=== PATIENT | female | born 1965 | race Caucasian/White ===

== ENCOUNTER → 2017-02-17 09:52 | Outpatient (REF) | payer MEDICAID, SELFPAY ==
[2017-02-17 14:26] LABS: Amphetamine/Metha Screen,Urine Negative ng/mL (<1000); Barbiturates Screen,Urine Negative ng/mL (<200); Benzodiazepines Screen,Urine Negative ng/mL (200); Cannabinoid Screen,Urine Positive ng/mL (<50); Cocaine Screen,Urine Negative ng/g (<300); Methadone Screen,Urine Negative ng/mL (<300); Opiate Screen,Urine Positive ng/mL (<300); Phencyclidine Screen,Urine Negative ng/mL (<25)
== END ==
LOC: LAB 09:52
PROVIDERS: Visit Provider Nurse Practitioner Family
DX: Z79.899 Other long term (current) drug therapy (principal)
CPT/HCPCS: 80305

== ENCOUNTER → 2017-03-20 09:53 | Outpatient (REF) | payer MEDICAID, SELFPAY ==
[2017-03-20 14:53] LABS: Amphetamine/Metha Screen,Urine Negative ng/mL (<1000); Barbiturates Screen,Urine Negative ng/mL (<200); Benzodiazepines Screen,Urine Negative ng/mL (200); Cannabinoid Screen,Urine Positive ng/mL (<50); Cocaine Screen,Urine Negative ng/g (<300); Methadone Screen,Urine Negative ng/mL (<300); Opiate Screen,Urine Positive ng/mL (<300); Phencyclidine Screen,Urine Negative ng/mL (<25)
== END ==
LOC: LAB 09:53
PROVIDERS: Visit Provider Nurse Practitioner Family
DX: M54.9 Dorsalgia, unspecified (principal); G89.29 Other chronic pain; Z79.899 Other long term (current) drug therapy
CPT/HCPCS: 80305

== ENCOUNTER → 2017-05-15 10:51 | Outpatient (REF) | payer MEDICAID, SELFPAY ==
[2017-05-15 19:08] LABS: Amphetamine/Metha Screen,Urine Negative ng/mL (<1000); Barbiturates Screen,Urine Negative ng/mL (<200); Benzodiazepines Screen,Urine Negative ng/mL (200); Cannabinoid Screen,Urine Positive ng/mL (<50); Cocaine Screen,Urine Negative ng/g (<300); Methadone Screen,Urine Negative ng/mL (<300); Opiate Screen,Urine Positive ng/mL (<300); Phencyclidine Screen,Urine Negative ng/mL (<25)
== END ==
LOC: LAB 10:51
PROVIDERS: Visit Provider Nurse Practitioner Family
DX: Z79.899 Other long term (current) drug therapy (principal)
CPT/HCPCS: 80305

== ENCOUNTER → 2017-07-10 13:11 | Outpatient (CLI) | payer MEDICAID, SELFPAY ==
[2017-07-10 17:35] LABS: Amphetamine/Metha Screen,Urine Negative ng/mL (<1000); Barbiturates Screen,Urine Negative ng/mL (<200); Benzodiazepines Screen,Urine Negative ng/mL (200); Cannabinoid Screen,Urine Positive ng/mL (<50); Cocaine Screen,Urine Negative ng/g (<300); Methadone Screen,Urine Negative ng/mL (<300); Opiate Screen,Urine Positive ng/mL (<300); Phencyclidine Screen,Urine Negative ng/mL (<25)
== END ==
PROVIDERS: Visit Provider Nurse Practitioner Family
DX: Z79.899 Other long term (current) drug therapy (principal)
CPT/HCPCS: 80305

== ENCOUNTER → 2017-08-04 09:47 | Outpatient (REF) | payer MEDICAID, SELFPAY ==
[2017-08-04 14:39] LABS: Amphetamine/Metha Screen,Urine Negative ng/mL (<1000); Barbiturates Screen,Urine Negative ng/mL (<200); Benzodiazepines Screen,Urine Negative ng/mL (200); Cannabinoid Screen,Urine Positive ng/mL (<50); Cocaine Screen,Urine Negative ng/g (<300); Methadone Screen,Urine Negative ng/mL (<300); Opiate Screen,Urine Positive ng/mL (<300); Phencyclidine Screen,Urine Negative ng/mL (<25)
== END ==
LOC: LAB 09:47
PROVIDERS: Visit Provider Nurse Practitioner Family
DX: M54.9 Dorsalgia, unspecified (principal); G89.29 Other chronic pain
CPT/HCPCS: 80305

== ENCOUNTER → 2017-09-08 09:22 | Outpatient (REF) | payer MEDICAID, SELFPAY ==
[2017-09-08 17:15] LABS: Amphetamine/Metha Screen,Urine Negative ng/mL (<1000); Barbiturates Screen,Urine Negative ng/mL (<200); Benzodiazepines Screen,Urine Negative ng/mL (<200); Cannabinoid Screen,Urine Positive ng/mL (<50); Cocaine Screen,Urine Negative ng/mL (<300); Methadone Screen,Urine Negative ng/mL (<300); Opiate Screen,Urine Positive ng/mL (<300); Phencyclidine Screen,Urine Negative ng/mL (<25)
[2017-09-09 14:57] LABS: Alanine Aminotransferase 47 U/L (12-78); Albumin Level 4.3 gm/dL (3.4-5.0); Albumin/Globulin Ratio 1.3 (1.1-1.8); Alkaline Phosphatase 105 U/L (46-116); Anion Gap 15.9 mEq/L (5-15); Aspartate Amino Transferase 18 U/L (15-37); Blood Urea Nitrogen 7 mg/dL (7-18); Calcium 9.6 mg/dL (8.5-10.1); Carbon Dioxide 25 mmol/L (21.0-32.0); Chloride 100 mmol/L (98-107); Chol/HDL Ratio 3.8 (1-3.5); Cholesterol 150 mg/dL (140-200); Creatinine,Serum 0.84 mg/dL (0.55-1.02); Estimated Glomerular Filt Rate 71 ml/min (>60); GFR (African American) 86 ML/MIN (>60); Globulin 3.4 gm/dl (1.3-3.2); Glucose 256 mg/dL (74-106); HDL Cholesterol 40 mg/dL (29-89); LDL Cholesterol 83 mg/dL (0-130); Potassium 3.9 mmoL/L (3.5-5.1); Sodium 137 mmol/L (136-145); T4 (Thyroxine) 12.4 ug/dl (4.7-13.3); Thyroid Stimulating Hormone 0.51 uIU/ml (0.358-3.740); Total Protein,Serum 7.7 gm/dL (6.4-8.2); Triglycerides 134 mg/dL (30-200); VLDL Cholesterol 27 mg/dL (0-40)
[2017-09-10 16:42] LABS: Microalbumin, Urine 9.3 ug/mL (Not Estab.); Vitamin D 25 Hydroxy 33.5 ng/mL (30.0-100.0)
== END ==
LOC: LAB 09:22
PROVIDERS: Visit Provider Nurse Practitioner Family
DX: E11.9 Type 2 diabetes mellitus without complications (principal); G62.9 Polyneuropathy, unspecified; Z13.0 Encounter for screening for diseases of the blood and blood-forming organs and certain disorders involving the immune mechanism; Z13.29 Encounter for screening for other suspected endocrine disorder; Z79.899 Other long term (current) drug therapy
CPT/HCPCS: 80053; 80061; 80305; 82043; 82652; 83036; 84436; 84443

== ENCOUNTER → 2017-11-06 09:39 | Outpatient (CLI) | payer MEDICAID, SELFPAY ==
[2017-11-06 14:03] LABS: Amphetamine/Metha Screen,Urine Negative ng/mL (<1000); Barbiturates Screen,Urine Negative ng/mL (<200); Benzodiazepines Screen,Urine Negative ng/mL (<200); Cannabinoid Screen,Urine Positive ng/mL (<50); Cocaine Screen,Urine Negative ng/mL (<300); Methadone Screen,Urine Negative ng/mL (<300); Opiate Screen,Urine Positive ng/mL (<300); Phencyclidine Screen,Urine Negative ng/mL (<25)
== END ==
PROVIDERS: Visit Provider Nurse Practitioner Family
DX: Z79.899 Other long term (current) drug therapy (principal)
CPT/HCPCS: 80305

== ENCOUNTER → 2017-12-04 13:45 | Outpatient (REF) | payer MEDICAID, SELFPAY ==
[2017-12-04 15:19] LABS: Amphetamine/Metha Screen,Urine Negative ng/mL (<1000); Barbiturates Screen,Urine Negative ng/mL (<200); Benzodiazepines Screen,Urine Negative ng/mL (<200); Cannabinoid Screen,Urine Positive ng/mL (<50); Cocaine Screen,Urine Negative ng/mL (<300); Methadone Screen,Urine Negative ng/mL (<300); Opiate Screen,Urine Positive ng/mL (<300); Phencyclidine Screen,Urine Negative ng/mL (<25)
== END ==
LOC: LAB 13:45
PROVIDERS: PCP Nurse Practitioner Family; Visit Provider Nurse Practitioner Family
DX: Z79.899 Other long term (current) drug therapy (principal)
CPT/HCPCS: 80305

== ENCOUNTER → 2018-04-08 13:26 | Outpatient (CLI) | payer MEDICAID, SELFPAY ==
[2018-04-08 15:49] LABS: Amphetamine/Metha Screen,Urine Negative ng/mL (<1000); Barbiturates Screen,Urine Negative ng/mL (<200); Benzodiazepines Screen,Urine Negative ng/mL (<200); Cannabinoid Screen,Urine Positive ng/mL (<50); Cocaine Screen,Urine Negative ng/mL (<300); Methadone Screen,Urine Negative ng/mL (<300); Opiate Screen,Urine Positive ng/mL (<300); Phencyclidine Screen,Urine Negative ng/mL (<25)
== END ==
PROVIDERS: Visit Provider Nurse Practitioner Family
DX: Z79.899 Other long term (current) drug therapy (principal)
CPT/HCPCS: 80305

== ENCOUNTER → 2018-08-11 09:15 | Outpatient (CLI) | payer MEDICARE, SELFPAY ==
[2018-08-12 09:40] LABS: Basophils # 0.1 K/mm3 (0-0.2); Basophils % 0.5 % (0.1-2.0); Eosinophils # 0.1 K/mm3 (0.0-0.4); Eosinophils % 0.5 % (0.1-12.0); Hemoglobin 15.3 g/dL (12.2-16.2); Lymphocytes # 2.9 K/mm3 (0.7-4.5); Lymphocytes % 30.3 % (10-50); Mean Corpuscular HGB Conc 30.7 g/dL (31.8-35.4); Mean Corpuscular Volume 97.7 fl (81-99); Mean Platelet Volume 10.1 fl (7.4-10.4); Monocytes # 0.4 K/mm3 (0.1-1.0); Monocytes % 4.5 % (1.7-9.3); Neutrophils # 6.2 K/mm3 (1.8-7.8); Neutrophils % 64.2 % (37.0-80.0); Platelet Count 283 K/mm3 (142-424); Red Blood Count 5.12 M/mm3 (4.20-5.40); Red Cell Distribution Width 13.5 % (11.5-17.5); White Blood Count 9.7 K/mm3 (4.8-10.8)
[2018-08-12 11:20] LABS: Hemoglobin A1C 8.9 % (0.0-7.0)
[2018-08-12 11:39] LABS: Alanine Aminotransferase 51 U/L (12-78); Albumin Level 4.1 gm/dL (3.4-5.0); Albumin/Globulin Ratio 1.4 (1.1-1.8); Alkaline Phosphatase 74 U/L (46-116); Anion Gap 17.8 mEq/L (5-15); Aspartate Amino Transferase 31 U/L (15-37); Bilirubin,Total 1.2 mg/dL (0.2-1.0); Blood Urea Nitrogen 12 mg/dL (7-18); Calcium 9.7 mg/dL (8.5-10.1); Carbon Dioxide 25 mmol/L (21.0-32.0); Chloride 97 mmol/L (98-107); Chol/HDL Ratio 3.9 (1-3.5); Cholesterol 151 mg/dL (140-200); Creatinine,Serum 0.68 mg/dL (0.55-1.02); Estimated Glomerular Filt Rate 91 ml/min (>60); GFR (African American) 110 ML/MIN (>60); Glucose 198 mg/dL (74-106); HDL Cholesterol 39 mg/dL (29-89); LDL Cholesterol 75 mg/dL (0-130); Potassium 3.8 mmoL/L (3.5-5.1); Sodium 136 mmol/L (136-145); T4 (Thyroxine) 10.4 ug/dl (4.7-13.3); Thyroid Stimulating Hormone 1.02 uIU/ml (0.358-3.740); Total Protein,Serum 7.1 gm/dL (6.4-8.2); Triglycerides 186 mg/dL (30-200); VLDL Cholesterol 37 mg/dL (0-40)
[2018-08-15 03:31] LABS: Microalbumin, Urine 6.8 ug/mL (Not Estab.); Vitamin D 25 Hydroxy 23.7 ng/mL (30.0-100.0)
== END ==
PROVIDERS: Visit Provider Nurse Practitioner Family
DX: E11.9 Type 2 diabetes mellitus without complications (principal); G62.9 Polyneuropathy, unspecified; Z79.84 Long term (current) use of oral hypoglycemic drugs
CPT/HCPCS: 80053; 80061; 82043; 82652; 83036; 84436; 84443; 85025

== ENCOUNTER → 2018-09-08 13:32 | Outpatient (CLI) | payer MEDICARE, SELFPAY ==
[2018-09-08 14:36] LABS: Amphetamine/Metha Screen,Urine Negative ng/mL (<1000); Barbiturates Screen,Urine Negative ng/mL (<200); Benzodiazepines Screen,Urine Negative ng/mL (<200); Cannabinoid Screen,Urine Positive ng/mL (<50); Cocaine Screen,Urine Negative ng/mL (<300); Methadone Screen,Urine Negative ng/mL (<300); Opiate Screen,Urine Positive ng/mL (<300); Phencyclidine Screen,Urine Negative ng/mL (<25)
== END ==
PROVIDERS: Visit Provider Nurse Practitioner Family
DX: Z79.899 Other long term (current) drug therapy (principal)
CPT/HCPCS: 80305

== ENCOUNTER → 2019-08-10 13:36 | Outpatient (CLI) | payer MEDICARE, SELFPAY ==
[2019-08-10 13:47] LABS: Basophils # 0.4 K/mm3 (0-0.2); Basophils % 4.1 % (0.1-2.0); Eosinophils # 0.1 K/mm3 (0.0-0.4); Eosinophils % 0.8 % (0.1-12.0); Hemoglobin 15.3 g/dL (12.2-16.2); Lymphocytes % 34.5 % (10-50); Mean Corpuscular Hemoglobin 31.5 pg (27.0-31.2); Mean Corpuscular Volume 98.4 fl (81-99); Monocytes # 0.4 K/mm3 (0.1-1.0); Monocytes % 4.3 % (1.7-9.3); Neutrophils # 5.2 K/mm3 (1.8-7.8); Neutrophils % 60.4 % (37.0-80.0); Platelet Count 293 K/mm3 (142-424); Red Blood Count 4.87 M/mm3 (4.20-5.40); Red Cell Distribution Width 17.7 % (11.5-17.5); White Blood Count 8.6 K/mm3 (4.8-10.8)
[2019-08-10 13:59] LABS: Chloride 99 mmol/L (98-107)
[2019-08-10 14:00] LABS: Potassium 3.6 mmoL/L (3.5-5.1); Sodium 136 mmol/L (136-145)
[2019-08-10 14:02] LABS: Alanine Aminotransferase 41 U/L (12-78); Albumin Level 4.5 g/dl (3.5-5.0); Alkaline Phosphatase 72 U/L (38-126); Aspartate Amino Transferase 41 U/L (14-36); Bilirubin,Total 0.9 mg/dl (0.2-1.3); Blood Urea Nitrogen 8 mg/dl (7-17); Estimated Glomerular Filt Rate 129 ml/min (>60); GFR (African American) 156 ML/MIN (>60)
[2019-08-10 14:03] LABS: Albumin/Globulin Ratio 1.7 (1.1-1.8); Anion Gap 11.6 mEq/L (5-15); Carbon Dioxide 29 mmol/L (22.0-30.0); Chol/HDL Ratio 3.4 (1-3.5); Cholesterol 167 mg/dl (140-200); Globulin 2.7 g/dL (1.3-3.2); Glucose 233 mg/dl (74-100); HDL Cholesterol 49 mg/dl (40-60); Total Protein,Serum 7.2 g/dl (6.3-8.2); Triglycerides 214 mg/dl (30-150); VLDL Cholesterol 43 mg/dL (0-40)
[2019-08-10 14:14] LABS: Direct LDL Cholesterol 100.13 mg/dL (100-129)
[2019-08-10 14:15] LABS: Creatinine,Urine Random 84 mg/dL (Not Estab.)
[2019-08-10 14:21] LABS: T4 (Thyroxine) 11.2 ug/dl (5.53-11.0)
[2019-08-10 14:28] LABS: Microalbumin/Creatinine Ratio 9.1
[2019-08-10 14:34] LABS: Thyroid Stimulating Hormone 0.78 uIU/mL (0.465-4.68)
[2019-08-10 15:24] LABS: Hemoglobin A1C 9.7 % (4.0-6.0)
[2019-08-16 16:28] LABS: 1,25 Dihydroxy Vitamin D 43 pg/mL (.); 1,25-Dihydroxy, Vitamin D-2 <10 pg/mL (.)
[2019-08-16 16:29] LABS: 1,25-Dihydroxy, Vitamin D-3 39 pg/mL (.)
== END ==
PROVIDERS: Visit Provider Nurse Practitioner Family
DX: E11.9 Type 2 diabetes mellitus without complications (principal); G47.00 Insomnia, unspecified; E55.9 Vitamin D deficiency, unspecified; Z79.84 Long term (current) use of oral hypoglycemic drugs
CPT/HCPCS: 80053; 80061; 82043; 82570; 82652; 83036; 84436; 84443; 85025

== ENCOUNTER → 2020-08-01 20:03 | Outpatient (CLI) | payer MEDICARE, SELFPAY ==
[2020-08-01 20:31] LABS: Basophils % 0.3 % (0.1-2.0); Eosinophils # 0.1 K/mm3 (0.0-0.4); Eosinophils % 0.9 % (0.1-12.0); Hematocrit 43.1 % (37.0-47.0); Lymphocytes # 3.4 K/mm3 (0.7-4.5); Lymphocytes % 32.5 % (10-50); Mean Corpuscular HGB Conc 34.8 g/dL (31.8-35.4); Mean Platelet Volume 9.4 fl (7.4-10.4); Monocytes # 0.5 K/mm3 (0.1-1.0); Neutrophils # 6.5 K/mm3 (1.8-7.8); Neutrophils % 61.2 % (37.0-80.0); Platelet Count 221 K/mm3 (142-424); Red Blood Count 4.68 M/mm3 (4.20-5.40); Red Cell Distribution Width 13.4 % (11.5-17.5); White Blood Count 10.6 K/mm3 (4.8-10.8)
[2020-08-01 20:40] LABS: Alanine Aminotransferase 37 U/L (12-78); Albumin Level 4.7 g/dl (3.5-5.0); Albumin/Globulin Ratio 1.9 (1.1-1.8); Anion Gap 16.7 mEq/L (5-15); Aspartate Amino Transferase 38 U/L (14-36); Blood Urea Nitrogen 8 mg/dl (7-17); Calcium 9.8 mg/dl (8.4-10.2); Carbon Dioxide 27 mmol/L (22.0-30.0); Chloride 98 mmol/L (98-107); Cholesterol 161 mg/dl (140-200); Estimated Glomerular Filt Rate 104 ml/min (>60); GFR (African American) 126 ML/MIN (>60); Globulin 2.5 g/dL (1.3-3.2); Glucose 165 mg/dl (74-100); HDL Cholesterol 36 mg/dl (40-60); Potassium 3.7 mmoL/L (3.5-5.1); Sodium 138 mmol/L (136-145); Total Protein,Serum 7.2 g/dl (6.3-8.2); Triglycerides 237 mg/dl (30-150); VLDL Cholesterol 47 mg/dL (0-40)
[2020-08-01 20:41] LABS: Alkaline Phosphatase 67 U/L (38-126); Chol/HDL Ratio 4.5 (1-3.5)
[2020-08-01 20:52] LABS: Direct LDL Cholesterol 88.72 mg/dL (100-129)
[2020-08-01 21:33] LABS: Hemoglobin A1C 7.8 % (4.0-6.0)
[2020-08-01 23:13] LABS: 25-OH Vitamin D, Total 15.5 ng/mL (30-100); T4 (Thyroxine) 11.1 ug/dl (5.53-11.0)
== END ==
PROVIDERS: Visit Provider Nurse Practitioner Family
DX: E11.9 Type 2 diabetes mellitus without complications (principal); E55.9 Vitamin D deficiency, unspecified; F41.9 Anxiety disorder, unspecified; Z79.84 Long term (current) use of oral hypoglycemic drugs
CPT/HCPCS: 80053; 80061; 82306; 83036; 84436; 85025

== ENCOUNTER → 2020-08-29 13:07 | Outpatient (CLI) | payer MEDICARE, SELFPAY ==
[2020-08-30 05:27] LABS: Creatinine,Urine Random 124 mg/dL (Not Estab.)
== END ==
PROVIDERS: Visit Provider Nurse Practitioner Family
DX: E11.9 Type 2 diabetes mellitus without complications (principal); E55.9 Vitamin D deficiency, unspecified; Z79.84 Long term (current) use of oral hypoglycemic drugs
CPT/HCPCS: 82043; 82570

== ENCOUNTER → 2021-02-22 17:48 | Outpatient (CLI) | payer MEDICARE, SELFPAY ==
[2021-02-22 18:56] LABS: Amphetamine/Metha Screen,Urine Negative ng/ml (<1000); Barbiturates Screen,Urine Negative ng/ml (<200)
[2021-02-22 18:57] LABS: Benzodiazepines Screen,Urine Negative ng/ml (<200); Cannabinoid Screen,Urine Positive ng/ml (<50)
[2021-02-22 18:58] LABS: Cocaine Screen,Urine Negative ng/ml (<300)
[2021-02-22 18:59] LABS: Methadone Screen,Urine Negative ng/ml (<300); Opiate Screen,Urine Positive ng/ml (<300)
[2021-02-22 19:00] LABS: Phencyclidine Screen,Urine Negative ng/ml (<25)
== END ==
PROVIDERS: Visit Provider Nurse Practitioner Family
DX: Z79.899 Other long term (current) drug therapy (principal)
CPT/HCPCS: 80305

== ENCOUNTER 2022-04-16 11:15 | Emergency (ER) | payer OTHER, MEDICARE, SELFPAY ==
[2022-04-16 11:23] VITALS: BP 152/86; PULSE 88; RESP 16; TEMP 36.8; O2SAT 98; BMI 20.5
--- NOTE | 2022-04-16 11:33 | PC.NURSE ---
PERRY DUDLEY at
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
[2022-04-16 12:00] VITALS: BP 111/71; PULSE 83; RESP 18; O2SAT 99
--- NOTE | 2022-04-16 12:10 | PC.NURSE ---
pt in radiology
--- NOTE | 2022-04-16 13:36 | PC.NURSE ---
call to radiology for update on images, no reports at this time
--- NOTE | 2022-04-16 13:42 | PC.NURSE ---
called rad to check on status of ct head, preliminary report faxed down.
[2022-04-16 13:52] VITALS: BP 129/77; PULSE 82; RESP 16; TEMP 36.7
== END 2022-04-16 13:54 | disposition home or self-care (01) ==
PROVIDERS: Emergency Provider Emergency Medicine; PCP Nurse Practitioner Family
DX: S09.90XA Unspecified injury of head, initial encounter (principal); S49.92XA Unspecified injury of left shoulder and upper arm, initial encounter; M54.40 Lumbago with sciatica, unspecified side; S06.0X0A Concussion without loss of consciousness, initial encounter; V89.2XXA Person injured in unspecified motor-vehicle accident, traffic, initial encounter
CPT/HCPCS: 70450; 72072; 72100; 72125; 73030; 73060; 73502; 99284; 99285

== ENCOUNTER → 2022-10-24 12:48 | Outpatient (CLI) | payer MEDICARE, SELFPAY ==
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
== END ==
PROVIDERS: PCP Nurse Practitioner Family; Visit Provider Nurse Practitioner Family
DX: R09.89 Other specified symptoms and signs involving the circulatory and respiratory systems (principal)
CPT/HCPCS: 93923

== ENCOUNTER 2022-11-18 08:08 | Day surgery (SDC) | payer MEDICARE, SELFPAY ==
[2022-11-18] VITALS (14 sets, daily range): BP systolic 103–194; BP diastolic 54–94; PULSE 62–85; RESP 18; TEMP 36.9; O2SAT 95–99; BMI 25.4
--- NOTE | 2022-11-18 07:16 | IR_ITS ---
APPROVED REPORT Patient Location: Outpatient PROCEDURES Left heart catheterization Left ventriculogram Selective coronary angiogram Selective bilateral renal angiogram Selective engagement superior mesenteric artery Catheter placed in the distal abdominal aorta Distal abdominal aortogram INDICATION Angina pectoris, High pretest likelihood for coronary artery disease, Severe to critical TIMMY, [place] claudication class III-IV, Occluded infrarenal abdominal aorta, Informed consent was obtained prior to the procedure. COMPLICATIONS NONE Estimated Blood Loss: LESS THAN 10 ML TECHNIQUE One percent lidocaine used to anesthetize the right anterior aspect of the wrist. The right radial artery was accessed via the Seldinger technique. A 6 Greek sheath was placed in the right radial artery. 2.5 mg of Verapamil, 800 mcg of nitroglycerin, 1mg Lidocaine and 5000 U Heparin were given through the arterial sheath. The papa catheter was also used to perform left heart catheterization, left ventriculogram and selective coronary angiogram. At the end of the diagnostic angiogram under fluoroscopic guidance the Po[place] catheter was advanced. It was apparent the aorta was occluded therefore angiography was performed directly through the Poppa catheter of each renal artery selectively. The catheter was also placed in the superior mesenteric artery and selective angiography was performed. Following this the pigtail catheter was advanced to the abdominal aorta where abdominal aortography was performed. At the end the procedure the apparatus was removed the sheath was removed and hemostasis was achieved using TR banding patient was transferred to the postop holding area in stable condition ANGIOGRAPHIC RESULTS The left main artery Has an ostial and mid vessel diffuse 30% stenosis The left anterior descending artery Has proximal 10 to 20% stenoses with a focal mid vessel 80% stenosis immediately proximal to a moderate-sized second diagonal artery. There is an additional 40% distal LAD concentric stenosis The circumflex artery Is a large nondominant vessel with proximal multiple concentric 70 to 80% stenoses The right coronary artery Is dominant and has a proximal concentric calcified 80 to 90% stenosis with diffuse 50% concentric stenoses and a distal 40 to 50% stenosis The SIMS ventriculogram reveals Normal 65% The left ventricular end-diastolic pressure 10 mmHg Superior mesenteric artery widely patent Right renal artery singular normal Left renal artery singular normal Abdominal aorta is occluded half a centimeter distal to the renal arteries. Thoracolumbar collaterals reconstitute at the bilateral distal external iliac arteries IMPRESSION Severe calcified three-vessel coronary disease as described above Normal ejection fraction Normal left ventricular end-diastolic pressure Normal renal arteries bilaterally Normal superior mesenteric artery Occluded infrarenal abdominal aorta with reconstitution at the bilateral external iliac arteries PLAN 1. Immediate tobacco cessation 2. LDL less than 55 to achieve that high intensity statin 3. Referral to [facility] surgery for bypass surgery evaluation as well as vascular surgery for consideration of aortobifem Electronically signed by : Genaro Shetty MD 11/18/2022 13:16:03
--- NOTE | 2022-11-18 08:43 | CA_ITS ---
APPROVED REPORT EXAM: Comprehensive 2D, Doppler, and color-flow Echocardiogram Academic Administrator: Sri Doherty CRT Ht: 5 ft 4 in Wt: 148lbs BSA: 1.72 BP: 142/78 mmHg Indications: Shortness of Breath, Diabetes, PVD, RBBB,fatigue 2D Dimensions LVOT 1.85 cm (M/F) 1.5-2.5 LA Volume 15.70 mL LA Volume Index 9.13 mL/m2 (M/F) 16-34 M-Mode Dimensions RVDd 2.17 cm (0.9-2.6) LA Diam 3.11 cm (1.9-4.0) LVDd 4.06 cm (3.5-5.7) Ao Diam 4.27 cm (2.0-3.7) LVDs 2.87 cm (3.5-5.7) IVSd 1.13 cm (0.6-1.1) PWd 0.67 cm (0.6-1.1) EF (Teich) 56.70% FS 29.30% EDV (Teich) 72.50 mL TAPSE 2.06 (<1.7) ESV (Teich) 31.40 mL LV Diastology E Decel Time 173.00 (160-240 msec) E/A Ratio 1.07 MED E' 7.40 (< 7 cm/sec) MED A' 11.70 cm/s E'/MED E' Ratio 11.26 (>14) LAT E' 8.20 (<10 cm/sec) LAT A' 8.40 cm/s E/LAT E' Ratio 10.16 (>14) Aortic Valve AO Peak GR. 4.80 mmHg Mitral Valve MV A Velocity 78.00 (40-130 cm/s) E/A Ratio 1.07 MV Decel. Time 173.00 (160-240 ms) Pulmonary Valve PV Peak Velocity 76.00 (50-150 cm/s) Tricuspid Valve TR P. Velocity 173.00 cm/s RAP Estimate 10.00 mmHg RVSP 21.90 mmHg Left Ventricle The left ventricle is normal size. The left ventricular systolic function is normal. The left ventricular ejection fraction is within the normal range. There is normal left ventricular wall thickness. There is normal LV segmental wall motion. The left ventricular diastolic function is normal. LVEF is 55%. Right Ventricle The right ventricle is normal size. The right ventricular systolic function is normal. There is increased RV wall thickness. Atria The left atrium size is normal. The right atrium size is normal. There is no Doppler evidence of interatrial shunt. Aortic Valve The aortic valve opens well. There is no aortic valvular stenosis. No aortic regurgitation is present. Mitral Valve The mitral valve is normal in structure. No evidence of mitral valve stenosis. Trace mitral valve regurgitation noted. Tricuspid Valve The tricuspid valve leaflets are thin and pliable. Trace tricuspid regurgitation. There is insufficient TR jet to estimate RVSP. Pulmonic Valve The pulmonary valve is normal in structure. Trace pulmonic regurgitation. Great Vessels The aortic root is normal in size. The ascending aorta is normal in size. IVC is normal in size and collapses >50% with inspiration. Pericardium There is no pericardial effusion. Other Information Study Quality: Fair Conclusion Normal biventricular systolic function. No significant valvular stenosis or regurgitation. Electronically signed by : Marsha Belle MD 11/21/2022 19:30:03
[2022-11-18 08:54] LABS: Basophils % 0.3 % (0.1-2.0); Eosinophils # 0.1 K/mm3 (0.0-0.4); Eosinophils % 0.7 % (0.1-12.0); Hematocrit 44.5 % (37.0-47.0); Hemoglobin 14.6 g/dL (12.2-16.2); Lymphocytes # 2.1 K/mm3 (0.7-4.5); Lymphocytes % 26.2 % (10-50); Mean Corpuscular HGB Conc 32.9 g/dL (31.8-35.4); Mean Corpuscular Hemoglobin 31.6 pg (27.0-31.2); Mean Corpuscular Volume 96.2 fl (81-99); Mean Platelet Volume 6.8 fl (7.4-10.4); Monocytes # 0.4 K/mm3 (0.1-1.0); Monocytes % 4.5 % (1.7-9.3); Neutrophils # 5.5 K/mm3 (1.8-7.8); Neutrophils % 68.3 % (37.0-80.0); Platelet Count 229 K/mm3 (142-424); Red Blood Count 4.63 M/mm3 (4.20-5.40); Red Cell Distribution Width 13.5 % (11.5-17.5)
[2022-11-18 09:18] LABS: Chloride 97 mmol/L (98-107); Potassium 3.4 mmoL/L (3.5-5.1); Sodium 138 mmol/L (136-145)
[2022-11-18 09:21] LABS: Anion Gap 15.4 mEq/L (5-15); Blood Urea Nitrogen 10 mg/dl (7-17); Carbon Dioxide 29 mmol/L (22.0-30.0); Creatinine Clearance Estimated 111 mL/min (50-200); Estimated Glomerular Filt Rate 103 ml/min (>60); GFR (African American) 125 ML/MIN (>60)
[2022-11-18 09:22] LABS: Calcium 9.3 mg/dl (8.4-10.2); Glucose 200 mg/dl (74-100)
--- NOTE | 2022-11-18 14:19 | SUR.PHASEII ---
Made patient referrals to for CABG and vascular surgeon and gave patient appointment times
== END 2022-11-18 14:19 | disposition home or self-care (01) ==
PROVIDERS: PCP Nurse Practitioner Family; Visit Provider Internal Medicine
DX: I25.118 Atherosclerotic heart disease of native coronary artery with other forms of angina pectoris (principal); E11.9 Type 2 diabetes mellitus without complications; F17.210 Nicotine dependence, cigarettes, uncomplicated; Z79.899 Other long term (current) drug therapy; Z79.84 Long term (current) use of oral hypoglycemic drugs; I74.09 Other arterial embolism and thrombosis of abdominal aorta; I70.213 Atherosclerosis of native arteries of extremities with intermittent claudication, bilateral legs
CPT/HCPCS: 36252; 80048; 85025; 93306; 93458; 99152; C1725; C1769; J1644; Q9966; Q9967

== ENCOUNTER 2022-11-20 10:27 | Day surgery (SDC) | payer MEDICARE, SELFPAY ==
[2022-11-20] VITALS (9 sets, daily range): BP systolic 120–158; BP diastolic 59–93; PULSE 57–104; RESP 18–20; O2SAT 94–99; BMI 22.8
--- NOTE | 2022-11-20 | IR_ITS ---
APPROVED REPORT Patient Location: Outpatient Delivery Director: LIONEL Rachel RT (R) PROCEDURES Drug-eluting stent to the ostial proximal mid and distal dominant right coronary artery in a contiguous manner Drug-eluting stent deployment to the proximal and mid LAD Drug-eluting stent to the ostial and proximal circumflex artery Drug-eluting stent deployment to the first obtuse marginal artery Intravascular ultrasound to the left main artery Drug-eluting stent deployment to the ostial proximal mid and distal left main artery INDICATION Severe to critical three-vessel coronary disease, Refusal to undergo bypass surgery Informed consent was obtained prior to the procedure. COMPLICATIONS None Estimated Blood Loss: Less than 10 ml TECHNIQUE 1% lidocaine used anesthetize the right anterior aspect of the right wrist the right radial artery was accessed via the Salinger technique and a 6 [place] hydrophilic sheath was placed in the right radial artery. 2.5 mg of verapamil along with nitroglycerin and lidocaine and heparin were administered intra-arterially. Additional therapeutic heparin was administered giving a therapeutic ACT. A AdXposepa guide catheter was placed in the right coronary artery followed by Choice PT extra-support wire down the right coronary artery. Two 3.0 x 38 mm [place] frontier stents were placed in the ostial proximal and mid dominant right coronary artery and deployed at 20 lobo and 24 lobo up and down the right coronary artery. An additional 3.0 mm x 12 mm [place] frontier stent was placed in the ostial right coronary artery overlapping the first 3 mm stent and deployed at 22 and then 24 lobo. The balloon was advanced to 20 lobo and postdilated. LUKAS-3 flow was present before and after the procedure. Excellent angiographic results were obtained. Following this the guide cath was placed in the left main artery with a Choice PT extra-support wire down the LAD and one down the circumflex artery. A 2.75 x 26 mm [place] frontier stent was deployed at 18 lobo in the proximal to mid LAD. A 3.25 x 12 mm noncompliant balloon was then deployed at 22 and 24 lobo in the ostial proximal and midportion of the 2.75 mm stent. LUKAS-3 flow was present before and after the procedure. Following this the guide liner was placed into the circumflex artery and the LAD wire was removed. A 2.5 x 27 mm noncompliant balloon was deployed in the proximal and midportion of the circumflex artery and the guide liner was advanced. Following this a 2.75 x 38 mm [place] frontier stent was placed in the circumflex artery extending into the first obtuse marginal artery and deployed at 16 lobo. A 3 mm x 12 mm noncompliant balloon was deployed at 20 lobo up and down the proximal mid portion of the 2.75 mm stent. An additional 3 mm x 12 mm [place] frontier stent was then placed in the ostial segment of the circumflex artery overlapping the 2.75 mm stent and then deployed at 24 lobo. The balloon was advanced and deployed at 24 then 26 lobo in the mid and proximal portion of the 2.75 mm stent. Following this intravascular ultrasound probe was advanced which demonstrated a severe stenosis in the left main artery. A 4 mm x 12 mm [place] frontier stent was placed in the ostial proximal mid and distal segment of the left main artery and deployed at 20 lobo. A 5 mm x 12 mm noncompliant balloon was deployed at 20 lobo in the ostial proximal mid distal segment which further postdilated. LUKAS-3 flow was present before and after the procedure down all the vessels which included the right coronary artery the circumflex artery the first obtuse marginal artery the LAD and the left main artery. At the end of the procedure the apparatus was removed the sheath was removed good hemostasis was achieved using TR banding patient was transfer
[2022-11-20 11:47] LABS: Basophils % 0.2 % (0.1-2.0); Eosinophils # 0.1 K/mm3 (0.0-0.4); Eosinophils % 0.5 % (0.1-12.0); Hematocrit 45.7 % (37.0-47.0); Hemoglobin 16.2 g/dL (12.2-16.2); Lymphocytes # 2.4 K/mm3 (0.7-4.5); Mean Corpuscular HGB Conc 35.4 g/dL (31.8-35.4); Mean Corpuscular Hemoglobin 33.2 pg (27.0-31.2); Mean Corpuscular Volume 93.6 fl (81-99); Mean Platelet Volume 8.1 fl (7.4-10.4); Monocytes # 0.5 K/mm3 (0.1-1.0); Monocytes % 4.9 % (1.7-9.3); Neutrophils % 72.5 % (37.0-80.0); Platelet Count 231 K/mm3 (142-424); Red Blood Count 4.89 M/mm3 (4.20-5.40); Red Cell Distribution Width 13.5 % (11.5-17.5); White Blood Count 11.1 K/mm3 (4.8-10.8)
[2022-11-20 12:25] LABS: Blood Urea Nitrogen 10 mg/dl (7-17); Calcium 9.9 mg/dl (8.4-10.2); Carbon Dioxide 24 mmol/L (22.0-30.0); Chloride 96 mmol/L (98-107); Creatinine Clearance Estimated 106 mL/min (50-200); Estimated Glomerular Filt Rate 103 ml/min (>60); GFR (African American) 125 ML/MIN (>60); Glucose 222 mg/dl (74-100); Potassium 3.9 mmoL/L (3.5-5.1)
[2022-11-20 12:28] LABS: Anion Gap 18.9 mEq/L (5-15); Sodium 135 mmol/L (136-145)
[2022-11-20 15:41] LABS: CATHL Activated Clotting Time > 400 SEC (74-125)
== END 2022-11-20 17:02 | disposition home or self-care (01) ==
LOC: CATHLAB 10:28
PROVIDERS: PCP Nurse Practitioner Family; Visit Provider Internal Medicine
DX: I25.10 Atherosclerotic heart disease of native coronary artery without angina pectoris (principal); F17.210 Nicotine dependence, cigarettes, uncomplicated; Z79.899 Other long term (current) drug therapy; E11.40 Type 2 diabetes mellitus with diabetic neuropathy, unspecified; Z79.84 Long term (current) use of oral hypoglycemic drugs; I70.213 Atherosclerosis of native arteries of extremities with intermittent claudication, bilateral legs; I45.10 Unspecified right bundle-branch block
CPT/HCPCS: 80048; 85025; 85347; 92928; 92929; 92978; 99152; 99153; C1725; C1769; C1874; C1876; C9600; C9601; J1644; Q9967

== ENCOUNTER → 2022-11-27 11:34 | Outpatient (CLI) | payer MEDICARE, SELFPAY ==
[2022-11-27 11:53] LABS: Basophils % 0.5 % (0.1-2.0); Eosinophils # 0.1 K/mm3 (0.0-0.4); Eosinophils % 0.8 % (0.1-12.0); Hemoglobin 13.4 g/dL (12.2-16.2); Lymphocytes # 2.8 K/mm3 (0.7-4.5); Lymphocytes % 31.3 % (10-50); Mean Corpuscular HGB Conc 34.2 g/dL (31.8-35.4); Mean Corpuscular Hemoglobin 32.1 pg (27.0-31.2); Mean Corpuscular Volume 93.8 fl (81-99); Mean Platelet Volume 8.9 fl (7.4-10.4); Monocytes # 0.4 K/mm3 (0.1-1.0); Monocytes % 4.5 % (1.7-9.3); Neutrophils # 5.6 K/mm3 (1.8-7.8); Platelet Count 245 K/mm3 (142-424); Red Blood Count 4.16 M/mm3 (4.20-5.40); Red Cell Distribution Width 13.4 % (11.5-17.5); White Blood Count 8.9 K/mm3 (4.8-10.8)
[2022-11-27 12:23] LABS: Anion Gap 18.4 mEq/L (5-15); Blood Urea Nitrogen 8 mg/dl (7-17); Calcium 9.3 mg/dl (8.4-10.2); Carbon Dioxide 25 mmol/L (22.0-30.0); Chloride 99 mmol/L (98-107); Estimated Glomerular Filt Rate 103 ml/min (>60); GFR (African American) 125 ML/MIN (>60); Glucose 161 mg/dl (74-100); Potassium 3.4 mmoL/L (3.5-5.1); Sodium 139 mmol/L (136-145)
== END ==
PROVIDERS: Internal Medicine; PCP Nurse Practitioner Family; Visit Provider Internal Medicine
DX: I25.10 Atherosclerotic heart disease of native coronary artery without angina pectoris (principal); R06.00 Dyspnea, unspecified; R94.31 Abnormal electrocardiogram [ECG] [EKG]
CPT/HCPCS: 36415; 80048; 85025

== ENCOUNTER 2023-02-16 10:37 | Day surgery (SDC) | payer MEDICARE, SELFPAY ==
[2023-02-16] VITALS (22 sets, daily range): BP systolic 103–166; BP diastolic 54–91; PULSE 63–106; RESP 16–19; TEMP 36.6; O2SAT 95–100; BMI 26.3
--- NOTE | 2023-02-16 | IR_ITS ---
APPROVED REPORT Patient Location: Outpatient PROCEDURES Right femoral arterial access Right retrograde femoral angiogram Attempted percutaneous revascularization of the right external iliac artery INDICATION Occluded abdominal aorta, Occluded bilateral common external iliac arteries, Informed consent was obtained prior to the procedure. COMPLICATIONS None Estimated Blood Loss: Less than 10 mls TECHNIQUE 1% lidocaine used anesthetize right groin the right femoral and the artery was accessed via the Salinger technique and a 5 Pashto sheath is placed in the right femoral artery. An advantage wire was used to push through the occlusion of the right external iliac artery into the right common iliac artery. The wire would not easily advance into the aorta. After further angiographic evaluation it was decided to abort the procedure. The vessel was extensively calcified and standard techniques for pushing through the chronically occluded vessel cannot be achieved. It was decided to refer patient to vascular surgery for consideration of aortobifem surgery ANGIOGRAPHIC RESULTS Right common and external iliac arteries are occluded IMPRESSION Occluded infrarenal abdominal aorta immediately below the bilateral renal arteries which extends into the bilateral common and external iliac arteries PLAN 1. Avoidance of tobacco products 2. Pain control. Recommend fentanyl subcu along with as needed Percocet 3. Refer to vascular surgery for consideration of surgical revascularization Electronically signed by : Genaro Shetty MD 02/16/2023 15:46:15
[2023-02-16 10:58] LABS: Basophils % 0.5 % (0.1-2.0); Eosinophils % 0.4 % (0.1-12.0); Hematocrit 41.6 % (37.0-47.0); Hemoglobin 13.9 g/dL (12.2-16.2); Lymphocytes # 2.5 K/mm3 (0.7-4.5); Lymphocytes % 30.8 % (10-50); Mean Corpuscular HGB Conc 33.4 g/dL (31.8-35.4); Mean Corpuscular Hemoglobin 31.5 pg (27.0-31.2); Mean Corpuscular Volume 94.3 fl (81-99); Mean Platelet Volume 8.7 fl (7.4-10.4); Monocytes # 0.4 K/mm3 (0.1-1.0); Monocytes % 4.9 % (1.7-9.3); Neutrophils # 5.2 K/mm3 (1.8-7.8); Neutrophils % 63.4 % (37.0-80.0); Platelet Count 237 K/mm3 (142-424); Red Blood Count 4.41 M/mm3 (4.20-5.40); Red Cell Distribution Width 13.5 % (11.5-17.5); White Blood Count 8.2 K/mm3 (4.8-10.8)
[2023-02-16 12:07] LABS: Chloride 100 mmol/L (98-107); Potassium 3.7 mmoL/L (3.5-5.1); Sodium 138 mmol/L (136-145)
[2023-02-16 12:10] LABS: Anion Gap 14.7 mEq/L (5-15); Blood Urea Nitrogen 7 mg/dl (7-17); Calcium 9.1 mg/dl (8.4-10.2); Carbon Dioxide 27 mmol/L (22.0-30.0); Creatinine Clearance Estimated 128 mL/min (50-200); Estimated Glomerular Filt Rate 127 ml/min (>60); GFR (African American) 154 ML/MIN (>60); Glucose 253 mg/dl (74-100)
[2023-02-16] MEDS: LIDOCAINE 1% 10ML MDV 20 ML IJ (12:45)
[2023-02-16] MEDS: diphenhydrAMINE 50MG/ML VIAL 50 MG IV (12:45)
[2023-02-16] MEDS: FENTANYL 100MCG/2ML VIAL 50 MCG IV (12:48)
[2023-02-16] MEDS: MIDAZOLAM HCL 1MG/1ML 5ML VIAL 1 MG IV (12:48)
[2023-02-16] MEDS: HEPARIN 1,000 UNITS/500ML NS (CATH LAB) 3000 UNIT IV (12:56)
[2023-02-16] MEDS: 0.9 % SODIUM CHLORIDE 500 ML 25 ML IV (12:56)
[2023-02-16] MEDS: IOHEXOL-240 100ML BOTTLE 10 ML IV (13:38)
--- NOTE | 2023-02-16 14:20 | SUR.PHASEII ---
Pt complained of lower back pain and kept trying to get up to alleviate her pain, educated patient on the importance of laying flat. Notified MD of pain back pain and gave verbal order to give 10mg of norco.
[2023-02-16] MEDS: HYDROCODONE 10MG/APAP 325MG TAB 1 TAB PO (14:31)
== END 2023-02-16 16:06 | disposition home or self-care (01) ==
PROVIDERS: PCP Nurse Practitioner Family; Visit Provider Internal Medicine
DX: I70.223 Atherosclerosis of native arteries of extremities with rest pain, bilateral legs (principal); I70.92 Chronic total occlusion of artery of the extremities; Z53.09 Procedure and treatment not carried out because of other contraindication; E11.51 Type 2 diabetes mellitus with diabetic peripheral angiopathy without gangrene; E11.40 Type 2 diabetes mellitus with diabetic neuropathy, unspecified; I45.10 Unspecified right bundle-branch block; F17.210 Nicotine dependence, cigarettes, uncomplicated; Z79.01 Long term (current) use of anticoagulants; Z79.84 Long term (current) use of oral hypoglycemic drugs; Z79.899 Other long term (current) drug therapy
CPT/HCPCS: 36415; 37220; 80048; 85025; 99152; C1769; C1894; J1644; Q9966